=== PATIENT | male | born 1950 | race Caucasian/White ===

== ENCOUNTER 2022-11-29 07:35 | Outpatient (CLI) | payer MEDICARE, SELFPAY | END 2022-11-29 07:36 | disposition home or self-care (01) | LOC: NFLDREF 12-01 10:50 | PROVIDERS: PCP Internal Medicine; Referring Provider Internal Medicine; Visit Provider Internal Medicine | DX: E78.5 Hyperlipidemia, unspecified (principal); N52.9 Male erectile dysfunction, unspecified; Z12.5 Encounter for screening for malignant neoplasm of prostate | CPT/HCPCS: 80053; 80061; 84153 ==

== ENCOUNTER 2023-06-12 07:40 | Outpatient (CLI) | payer MEDICARE, SELFPAY ==
--- NOTE | 2023-06-12 08:00 | CT_ITS ---
Patient: EFRAÍN GILLESPIE Facility:?[facility] Patient ID:?[id number] Site Patient ID:?[id number]. Site :?[id number] Study:?CT-Chest WITHOUT-06/12/2023 8:06:36 AM Ordering Physician:YOSVANY Final Report: Indication: Pulmonary nodule Technique: Noncontrast CT chest Please note that all CT scans at this facility use dose modulation, iterative reconstruction, and/or weight-based dosing when appropriate to reduce radiation dose to as low as reasonably achievable. Comparison: 08/13/2019 Findings: Emphysematous changes again noted with peripheral areas of fibrotic change. Stable nodule within the right middle lobe measuring 4 millimeters, 3/51. Stable nodule within the left lower lobe measuring 3 millimeters, 375. atherosclerotic changes. No adenopathy. Visualized thyroid is within normal limits. Upper abdomen is unremarkable. Degenerative changes. No acute fracture. Impression: Stable bilateral pulmonary nodules measuring 4 millimeters or less. Emphysema and pulmonary fibrosis unchanged. Please note that all CT scans at this facility use dose modulation, iterative reconstruction, and/or weight-based dosing when appropriate to reduce radiation dose to as low as reasonably achievable. Dictated by Ravi Piedra MD @ 06/12/2023 11:07:40 AM Signed by:?Ravi Piedra MD @06/12/2023 11:07:40 AM (Electronic Signature)
== END 2023-06-12 07:41 | disposition home or self-care (01) ==
PROVIDERS: PCP Internal Medicine; Visit Provider Internal Medicine
DX: R91.1 Solitary pulmonary nodule (principal); R91.8 Other nonspecific abnormal finding of lung field
CPT/HCPCS: 71250

== ENCOUNTER 2024-01-29 10:57 | Outpatient (CLI) | payer MEDICARE, SELFPAY | END 2024-01-29 10:58 | disposition home or self-care (01) | LOC: NFLDREF 01-30 08:36 | PROVIDERS: PCP Internal Medicine; Referring Provider Internal Medicine; Visit Provider Internal Medicine | DX: E78.5 Hyperlipidemia, unspecified (principal); Z12.5 Encounter for screening for malignant neoplasm of prostate | CPT/HCPCS: 80053; 80061; G0103 ==